=== PATIENT | female | born 1970 | race Caucasian/White ===

== ENCOUNTER 2023-01-15 03:04 | Day surgery (SDC) | payer OTHER, SELFPAY ==
[2023-01-11 16:07] VITALS: BMI 41.2
[2023-01-15 09:44] VITALS: BP 112/75; PULSE 63; RESP 18; TEMP 36.1; O2SAT 98; BMI 42.3
--- NOTE | 2023-01-15 10:00 | WPDANESEPPF ---
Anes - Initial Pre Proc Eval Procedure: Operation Date: 01/15/23 11:00 Proposed Procedures p Esophagogastroduodenoscopy - Calvin Cortes MD Date/Time: 01/15/23 10:00 Surgeon: Calvin Cortes MD Pre Op Diagnosis: Nausea,Right upper quadrant pain,Dysphagia Patient Data Age: 52 Gender: F Height: 1.63 m Weight: 111.7 kg Last Vital Signs Temp 97 F L 01/15/23 09:44 Pulse 63 01/15/23 09:44 Resp 18 01/15/23 09:44 BP 112/75 01/15/23 09:44 Pulse Ox 98 01/15/23 09:44 O2 Del Method Room Air 01/15/23 09:44 Allergies Allergy/AdvReac Type Severity Reaction Status Date / Time adhesive tape Allergy Intermediate Rash Verified 01/11/23 16:08 seasame oil Allergy Intermediate Rash Uncoded 01/11/23 16:08 Home Medications Medication Instructions Recorded Confirmed Type cholestyramine (with sugar) 4 gram 1 ea PO DAILY 01/02/23 01/11/23 History oral powder ergocalciferol (vitamin D2) 1,250 1,250 mcg PO WEEKLY 01/02/23 01/11/23 History mcg (50,000 unit) capsule fexofenadine 60 mg tablet (Susana 60 mg PO Q12H PRN allergies 01/02/23 01/11/23 History Allergy) nifedipine 60 mg tablet,extended 60 mg PO DAILY 01/02/23 01/11/23 History release rosuvastatin 40 mg tablet (Crestor) 40 mg PO DAILY 01/02/23 01/11/23 History sertraline 25 mg tablet (Zoloft) 25 mg PO DAILY 01/02/23 01/11/23 History omeprazole 40 mg capsule,delayed 40 mg PO .daily #30 caps 01/15/23 01/15/23 Rx release Patient hx anesthesia problems: none Family hx anesthesia problems: none Results Review: All pre-operative results and documents have been reviewed as part of the pre-operative evaluation. [facility] Past Medical History Medical History (Updated 01/02/23 @ 14:45 by SAM DickC) Elevated cholesterol HTN (hypertension) Hyperbilirubinemia Nausea RUQ pain Surgical History Surgical History (Updated 01/02/23 @ 14:00 by Asael Duffy) History of cholecystectomy Social History Social History Smoking status: Never smoker Alcohol intake: current Substance use: never Substance use type: does not use Living arrangements: with family Spiritual care concerns: No Anes - Eval Final PreProcedure Day of Procedure 01/15/23 10:00 Patient weight: morbidly obese Heart: regular rate and rhythm Lungs: clear to auscultation Airway: Mallampati scale class III Neurological: alert and oriented Last oral intake: >/= 8 hours ASA classification: III Emergent: no Anesthetic plan: proceed Anesthesia type and monitoring: general GIVS and standard monitoring Results Review: All pre-operative results and documents have been reviewed as part of the pre-operative evaluation. Informed Consent: The patient's anesthetic plan and its attendant risks and benefits were discussed with the patient/family/POA. Questions were solicited and answers provided to the satisfaction of the patient/family/POA.
--- NOTE | 2023-01-15 10:03 | WPDHPUPDATE1 ---
History and Physical Update Update Date/Time: 01/15/23 10:03 History and Physical has been reviewed, including an updated exam of the patient. There are NO changes in the patient's condition. Risks, benefits, and alternatives have been discussed and questions answered. Patient agrees to proceed with procedure.
[2023-01-15] MEDS: LACTATED RINGERS 1,000 ML 150 ML IV CONT (10:14)
[2023-01-15] MEDS: BENZOCAINE (*SP) 60 ML SPRAY CAN (HURRICAINE) 1 SPRAY MUCOUS MEM (10:21)
[2023-01-15 10:35] VITALS: BP 143/77; PULSE 86; RESP 26; O2SAT 97
[2023-01-15 10:45] VITALS: BP 119/75; PULSE 81; RESP 22; O2SAT 96
[2023-01-15 10:55] VITALS: BP 133/71; PULSE 74; RESP 17; O2SAT 97
== END 2023-01-15 11:06 | disposition home or self-care (01) ==
PROVIDERS: PCP Internal Medicine; Visit Provider Internal Medicine Gastroenterology
PROC: 0DJ08ZZ Inspection of Upper Intestinal Tract, Via Natural or Artificial Opening Endoscopic (ICD-10-PCS; CPT 43235; principal; 2023-01-15 11:00)
DX: K21.00 Gastro-esophageal reflux disease with esophagitis, without bleeding (principal); K22.2 Esophageal obstruction; I10 Essential (primary) hypertension; E78.00 Pure hypercholesterolemia, unspecified; E66.01 Morbid (severe) obesity due to excess calories; Z68.41 Body mass index [BMI] 40.0-44.9, adult
CPT/HCPCS: 43239; 43249; 88305; C1726; J2704; J7120

== ENCOUNTER 2023-01-31 08:13 | Outpatient (CLI) | payer OTHER, SELFPAY ==
--- NOTE | ~2023-01-31 | US_ITS ---
Limited Abdominal Sonogram: Real-time sonographic imaging of the right upper quadrant was performed. Clinical History: Abdominal pain Findings: The liver appears echogenic, with no evidence of mass lesion or bile duct dilatation. Main portal vein demonstrates normal direction of flow. The gallbladder is absent, compatible prior jany cystectomy. The common bile duct measures 5 mm. The pancreas is largely obscured by body habitus/bow el gas shadowing. Impression: Diffuse fatty infiltration of the liver. Status post cholecystectomy. Reviewed, dictated and finalized at location . Impression: Diffuse fatty infiltration of the liver. Status post cholecystectomy.
== END 2023-01-31 08:14 | disposition home or self-care (01) ==
PROVIDERS: PCP Internal Medicine; Visit Provider Nurse Practitioner
DX: K76.0 Fatty (change of) liver, not elsewhere classified (principal); E80.6 Other disorders of bilirubin metabolism; Z90.49 Acquired absence of other specified parts of digestive tract
CPT/HCPCS: 76705